=== PATIENT | female | born 1950 | race Caucasian/White ===

== ENCOUNTER 2017-07-03 19:22 | Emergency (ER) | payer MEDICAID | END 2017-07-03 21:39 | disposition home or self-care (01) | LOC: E/R 21:39 | DX: J20.9 Acute bronchitis, unspecified (principal); I10 Essential (primary) hypertension; E11.9 Type 2 diabetes mellitus without complications; Z79.4 Long term (current) use of insulin | CPT/HCPCS: 99284; Z7502 ==